=== PATIENT | female | born 1960 | race Caucasian/White ===

== ENCOUNTER 2022-05-20 16:08 | Emergency (ER) | payer OTHER ==
[~2022-05-20] VITALS: Ht 152.4 cm; Wt 63.6 kg
[~2022-05-20 16:08] MED LIST: ASPIRIN 81M81 MG/TA2 PO; LEVOXYL0.05 MG PO; NIACIN100 MG
[2022-05-20 16:15] VITALS: TEMP 98
[2022-05-20 17:52] VITALS: BP 136/63; PULSE 88
== END 2022-05-20 17:52 | disposition home or self-care (01) ==
LOC: COL.ER 16:08
DX: U07.1 COVID-19 (principal); R07.89 Other chest pain

== ENCOUNTER → 2024-04-04 | Outpatient (CLI) | payer BC ==
[~2024-04-04] MED LIST changes: +ESTRACE 1MG1 MG/TAB PO; +MASON NATURAL2000 IU PO; +SYNTHROID0.075 MG/T PO
== END ==
LOC: MC.RAD 11:21
DX: Z12.31 Encounter for screening mammogram for malignant neoplasm of breast (principal)